=== PATIENT | female | born 1985 | race Caucasian/White ===

== ENCOUNTER 2022-02-14 16:58 | Outpatient (CLI) | payer SELFPAY | END 2022-02-14 16:59 | disposition home or self-care (01) | LOC: CSHLAB 16:58 | PROVIDERS: ATTEND Surgery | DX: Z20.822 Contact with and (suspected) exposure to COVID-19 (principal); C50.411 Malignant neoplasm of upper-outer quadrant of right female breast; Z17.1 Estrogen receptor negative status [ER-] | CPT/HCPCS: 87811 ==

== ENCOUNTER 2022-02-20 10:15 | Outpatient (CLI) | payer MEDICAID, OTHER ==
[2022-02-15 12:45] VITALS: BMI 28.5
== END 2022-02-20 10:16 | disposition home or self-care (01) ==
LOC: CSHCT 10:15
PROVIDERS: ATTEND Surgery
DX: C50.411 Malignant neoplasm of upper-outer quadrant of right female breast (principal); Z17.1 Estrogen receptor negative status [ER-]; R93.7 Abnormal findings on diagnostic imaging of other parts of musculoskeletal system
CPT/HCPCS: 71260; 74177; 74178; 93306

== ENCOUNTER 2022-02-21 10:32 | Day surgery (SDC) | payer MEDICAID, SELFPAY ==
[2022-02-20 11:10] VITALS: BMI 28.3
[~2022-02-21 10:32] MED LIST: Bupivacaine PF 0.5% 30 ML VIAL ONE; EPINEPHrine 1 MG/ML AMP ONE
[2022-02-21 12:34] LABS: BHCG - Serum Negative (NEGATIVE); Pregs Control Background? CLEAR/WHITE (CLR/WHITE); Pregs Control Bar Appear? YES (CONTROL BAR)
[2022-02-21] MEDS ORDERED: Fentanyl 100 MCG/2 ML VIAL ONE (12:47)
[2022-02-21] MEDS ORDERED: PROPOFOL 20 ML ONE (12:47)
[2022-02-21] MEDS ORDERED: Ondansetron PF 4 MG/2 ML Vial ONE (12:48)
[2022-02-21] MEDS ORDERED: Glycopyrrolate 0.2 MG/ML 5 ML SYRINGE ONE (12:48)
[2022-02-21] MEDS ORDERED: CEFAZOLIN 2 GM VIAL ONE (13:05)
[2022-02-21] MEDS ORDERED: ePHEDrine Sulfate 50 MG/10 ML VIAL ONE (13:29)
[2022-02-21] MEDS ORDERED: PHENYLEPHRINE-NS 100 MCG/ML 10 ML SYRINGE ONE (13:39)
[2022-02-21] MEDS ORDERED: Acetaminophen 325 MG TAB PO PRN (13:56)
[2022-02-21] MEDS ORDERED: HYDROcodone/Acetaminophen 5/325 mg Tablet PO PRN (13:56)
== END 2022-02-21 15:10 | disposition home or self-care (01) ==
LOC: CSHSDC 10:32
PROVIDERS: ATTEND Surgery
PROC: 02HV33Z Insertion of Infusion Device into Superior Vena Cava, Percutaneous Approach (ICD-10-PCS; principal; 2022-02-21)
PROC: B518ZZA Fluoroscopy of Superior Vena Cava, Guidance (ICD-10-PCS; principal; 2022-02-21)
DX: C50.411 Malignant neoplasm of upper-outer quadrant of right female breast (principal); Z17.1 Estrogen receptor negative status [ER-]; Z20.822 Contact with and (suspected) exposure to COVID-19
CPT/HCPCS: 36415; 84703; C1788; J0171; J0690; J1642; J2405; J2704; J3010; S0020

== ENCOUNTER 2022-07-18 07:23 | Day surgery (SDC) | payer OTHER ==
[2022-07-18] MEDS ORDERED: Midazolam HCl 2 mg/2 ml Vial ONE ×3 (12:07→12:27)
[2022-07-18] MEDS ORDERED: PROPOFOL 20 ML ONE ×2 (12:26→14:07)
[2022-07-18] MEDS ORDERED: Fentanyl 100 MCG/2 ML VIAL ONE (12:26)
[2022-07-18] MEDS ORDERED: Bupivacaine HCl 0.5%/Epinephrine 1:200,000/PF 30 ml Vial ONE (12:27)
[2022-07-18] MEDS ORDERED: CEFAZOLIN 2 GM VIAL ONE (12:27)
[2022-07-18] MEDS ORDERED: Isosulfan Blue 50 MG/5 ML VIAL ONE (12:27)
[2022-07-18] MEDS ORDERED: Ketorolac Tromethamine 30 MG/ML VIAL ONE (13:18)
[2022-07-18] MEDS ORDERED: HYDROmorphone 0.5 MG/0.5 ML SYRINGE ONE (14:10)
[2022-07-18] MEDS ORDERED: HYDROcodone/Acetaminophen 5/325 mg Tablet PO PRN (15:01)
[2022-07-18] MEDS ORDERED: Acetaminophen 325 MG TAB PO PRN (15:01)
== END 2022-07-18 16:35 | disposition home or self-care (01) ==
LOC: CSHMAMMO 07:23
PROVIDERS: ATTEND Surgery
PROC: 0HBU0ZX Excision of Left Breast, Open Approach, Diagnostic (ICD-10-PCS; principal; 2022-07-18)
PROC: 0HBU0ZZ Excision of Left Breast, Open Approach (ICD-10-PCS; principal; 2022-07-18)
DX: C50.412 Malignant neoplasm of upper-outer quadrant of left female breast (principal); Z17.0 Estrogen receptor positive status [ER+]; N60.32 Fibrosclerosis of left breast; Z79.899 Other long term (current) drug therapy
CPT/HCPCS: 19281; 19282; 76098; 78195; 88307; 88342; A9541; C1713; J1170; J1885; J2250; J2704; J3010; Q9968

== ENCOUNTER 2024-05-13 12:25 | Outpatient (CLI) | payer BC | END 2024-05-13 12:26 | disposition home or self-care (01) | LOC: CSHULT 12:25 | PROVIDERS: ATTEND Internal Medicine Hematology & Oncology | DX: Z13.6 Encounter for screening for cardiovascular disorders (principal); C50.412 Malignant neoplasm of upper-outer quadrant of left female breast; Z79.60 Long term (current) use of unspecified immunomodulators and immunosuppressants | CPT/HCPCS: 93306 ==

== ENCOUNTER 2025-02-18 09:31 | Outpatient (CLI) | payer BC | END 2025-02-18 09:32 | disposition home or self-care (01) | LOC: CSHULT 09:31 | PROVIDERS: ATTEND Internal Medicine Hematology & Oncology | DX: C50.412 Malignant neoplasm of upper-outer quadrant of left female breast (principal) | CPT/HCPCS: 93306 ==